=== PATIENT | female | born 1980 | race Caucasian/White ===

== ENCOUNTER 2023-06-19 20:26 | Emergency (ER) | payer MEDICAID ==
[~2023-06-19] VITALS: Ht 154.9 cm; Wt 77.1 kg
[2023-06-19] MEDS ORDERED: IBUP-1955 PO (22:27)
[2023-06-19] MEDS ORDERED: CYCL10TA9 PO (22:27)
[2023-06-19] MEDS ORDERED: KETOROLAC TROMETHAMINE 15 MG/ML VIAL ONE (22:30)
[2023-06-19] MEDS ORDERED: CYCLOBENZAPRINE 10 MG TABLET ONE (22:30)
[2023-06-19] MEDS: KETOROLAC TROMETHAMINE 15 MG/ML VIAL IM ONE (22:35)
[2023-06-19] MEDS: CYCLOBENZAPRINE 10 MG TABLET PO ONE (22:35)
[2023-06-19] MEDS: ACETAMINOPHEN ES 500 MG TABLET PO ONE (23:05)
[2023-06-20 00:40] VITALS: BP 119/70; TEMP 98; O2SAT 99
[2023-06-20] MEDS: LIDOCAINE 5% (PATCH) 1 EA PATCH TP SCH (00:40)
== END 2023-06-20 00:41 | disposition home or self-care (01) ==
LOC: ER 20:35
DX: M62.830 Muscle spasm of back (principal); Z79.899 Other long term (current) drug therapy; V89.2XXA Person injured in unspecified motor-vehicle accident, traffic, initial encounter; Y93.89 Activity, other specified; Y92.89 Other specified places as the place of occurrence of the external cause; Y99.8 Other external cause status
CPT/HCPCS: 99283; 96372; 72110; J1885